=== PATIENT | female | born 1985 | race Caucasian/White ===

== ENCOUNTER 2022-10-01 09:22 | Inpatient (IN) | payer OTHER ==
[~2022-10-01 09:22] MED LIST: Lidocaine 1% 10 ML MDV ONE
[2022-10-01] MEDS ORDERED: Sodium Chloride 0.9% 10 ML Syringe FLUSH PRN (11:38)
[2022-10-01] MEDS ORDERED: Ondansetron 4 MG/2 ML SDV IVPUSH PRN (11:38)
[2022-10-01] MEDS ORDERED: Lidocaine 1% 50 ML MDV INJECT PRN (11:38)
[2022-10-01] MEDS ORDERED: Nalbuphine 10 MG/0.5 ML Syringe IVPUSH PRN (11:38)
[2022-10-01] MEDS ORDERED: Lactated Ringers 1,000 ML IV SCH (11:45)
[2022-10-01] MEDS ORDERED: Oxytocin/Lactated Ringers 10 UNIT/1,000 ML BAG IV SCH ×2 (11:45)
[2022-10-01] MEDS: Lactated Ringers 1,000 ML IV SCH ×2 (11:55→14:24)
[2022-10-01] MEDS ORDERED: fentaNYL 100 MCG/2 ML SDV EPIDUR PRN (12:45)
[2022-10-01] MEDS ORDERED: diphenhydrAMINE 50 MG/ML SDV IVPUSH PRN (12:45)
[2022-10-01] MEDS ORDERED: Bupivacaine/fentaNYL/NS 100 ML Bag EPIDUR PRN (12:45)
[2022-10-01] MEDS ORDERED: ePHEDrine 50 MG/ML SDV IVPUSH PRN (12:45)
[2022-10-01] MEDS ORDERED: Calcium Carbonate 500 MG Tab.Chew PO PRN (14:28)
[2022-10-01] MEDS ORDERED: Witch Hazel Medicated Pads 40/Jar TOP PRN (19:50)
[2022-10-01] MEDS ORDERED: Benzocaine/Menthol 20%-0.5% Spray 78 GM Cannister TOP PRN (19:50)
[2022-10-01] MEDS ORDERED: Sodium Chloride 0.9% 10 ML Syringe FLUSH SCH (21:00)
[2022-10-01] MEDS: Ibuprofen 600 MG Tab PO PRN (21:15)
[2022-10-02] MEDS: Acetaminophen 325 MG Tab PO PRN ×4 (00:18→15:05)
[2022-10-02] MEDS: Ibuprofen 600 MG Tab PO PRN ×2 (09:36→15:05)
[2022-10-02 20:42] VITALS: BP 152/89; PULSE 79
== END 2022-10-02 21:00 | disposition home or self-care (01) | DRG 807 ==
LOC: JD.OBCHECK 09:22 → JD.OB 09:28 → JD.OBCHECK 10:38 → JD.OB 10:39 → OBSVTOIN 19:18 → JD.OB 19:19
PROVIDERS: ADMIT Obstetrics & Gynecology; ATTEND Obstetrics & Gynecology
PROC: 10E0XZZ Delivery of Products of Conception, External Approach (ICD-10-PCS; principal; 2022-10-01)
PROC: 10907ZC Drainage of Amniotic Fluid, Therapeutic from Products of Conception, Via Natural or Artificial Opening (ICD-10-PCS; 2022-10-01)
PROC: 3E033VJ Introduction of Other Hormone into Peripheral Vein, Percutaneous Approach (ICD-10-PCS; 2022-10-01)
PROC: 3E0R3BZ Introduction of Anesthetic Agent into Spinal Canal, Percutaneous Approach (ICD-10-PCS; 2022-10-01)
PROC: 00HU33Z Insertion of Infusion Device into Spinal Canal, Percutaneous Approach (ICD-10-PCS; 2022-10-01)
DX: O13.4 Gestational [pregnancy-induced] hypertension without significant proteinuria, complicating childbirth (principal); Z37.0 Single live birth; Z3A.37 37 weeks gestation of pregnancy; Z88.1 Allergy status to other antibiotic agents; Z88.8 Allergy status to other drugs, medicaments and biological substances; Z88.7 Allergy status to serum and vaccine; Z88.2 Allergy status to sulfonamides; Z79.890 Hormone replacement therapy; Z79.899 Other long term (current) drug therapy; Z87.440 Personal history of urinary (tract) infections; J30.9 Allergic rhinitis, unspecified; Z98.890 Other specified postprocedural states
CPT/HCPCS: 36415; 51702; 59025; 59409; 82565; 82570; 83615; 84112; 84156; 84450; 84460; 84520; 84550; 85025; 86592; 86850; 86900; 86901; A9270-GY; J2590; J3010; J7120

== ENCOUNTER 2022-10-07 18:41 | Observation (INO) | payer OTHER ==
[2022-10-07] MEDS ORDERED: Sodium Chloride 0.9% 10 ML Syringe FLUSH PRN (21:08)
[2022-10-08] MEDS ORDERED: NIFEdipine 10 MG Cap PO ONE (00:51)
[2022-10-08] MEDS ORDERED: NIFEdipine 10 MG Cap PO PRN (01:43)
[2022-10-08] MEDS: Acetaminophen 325 MG Tab PO PRN ×2 (02:28→08:28)
[2022-10-08 12:02] VITALS: BP 132/76; PULSE 92
== END 2022-10-08 12:05 | disposition home or self-care (01) ==
LOC: JD.ED 18:41 → JD.OB 10-08 00:52
PROVIDERS: ADMIT Obstetrics & Gynecology; ATTEND Obstetrics & Gynecology
DX: O16.5 Unspecified maternal hypertension, complicating the puerperium (principal); O15.2 Eclampsia complicating the puerperium; E06.3 Autoimmune thyroiditis; J45.909 Unspecified asthma, uncomplicated; Z79.899 Other long term (current) drug therapy; Z79.82 Long term (current) use of aspirin; Z79.890 Hormone replacement therapy; Z88.2 Allergy status to sulfonamides; Z88.1 Allergy status to other antibiotic agents; Z88.7 Allergy status to serum and vaccine; Z98.890 Other specified postprocedural states
CPT/HCPCS: 36415; 80053; 81001; 85025; 85610; 87086; 93005; 99285; A9270-GY; G0378; J3490